=== PATIENT | female | born 1980 | race Caucasian/White ===

== ENCOUNTER → 2022-05-10 | Outpatient (CLI) | payer OTHER ==
[~2022-05-10] VITALS: Ht 167.6 cm; Wt 210.0 kg
[~2022-05-10] MED LIST: TAB-A-VITE MUL1 EAC1 PO
[2022-05-10 16:29] VITALS: BP 104/69
== END ==
LOC: AMSURD 15:23
DX: Z51.81 Encounter for therapeutic drug level monitoring (principal)
CPT/HCPCS: J3380; J7050

== ENCOUNTER → 2022-07-05 | Outpatient (CLI) | payer OTHER ==
[~2022-07-05] VITALS: Ht 167.6 cm; Wt 210.0 kg
[2022-07-05 15:30] VITALS: BP 110/67
== END ==
LOC: AMSURD 15:20
DX: Z51.81 Encounter for therapeutic drug level monitoring (principal)
CPT/HCPCS: J7050

== ENCOUNTER → 2022-09-27 | Outpatient (CLI) | payer OTHER ==
[~2022-09-27] VITALS: Ht 167.6 cm; Wt 120.0 kg
[2022-09-27 15:45] VITALS: BP 112/67
== END ==
LOC: AMSURD 15:27
DX: K50.10 Crohn's disease of large intestine without complications (principal)
CPT/HCPCS: J7050